=== PATIENT | female | born 1955 | race African-American/Black ===

== ENCOUNTER 2016-07-27 21:23 | Emergency (ER) | payer MEDICARE, MEDICAID ==
[~2016-07-27] VITALS: Ht 167.6 cm; Wt 88.1 kg
[~2016-07-27 21:23] MED LIST: ACET1TAB14 PO; AMLODIPINE; ASPIRIN PO; DIALYVITE PO; FLURAZEPAM; GABA-529 PO; JANUVIA PO; LANTUS SQ; METOPROLOL PO; PRANDIN; PRAVASTATIN PO; RENVELA PO; REPAGLINIDE PO; VALS160T2 PO
[2016-07-27] MEDS ORDERED: ACETAMINOPHEN WITH CODEINE 300/30MG TABLET PO ONE (23:15)
[2016-07-28] MEDS ORDERED: MORPHINE SULFATE 10 MG/ML CPJ IM ONE (00:15)
[2016-07-28] MEDS ORDERED: ONDANSETRON HCL 4MG/2ML VIAL IM ONE (00:15)
[2016-07-28 00:18] VITALS: BP 166/91
== END 2016-07-28 01:46 | disposition home or self-care (01) ==
LOC: ER 21:23
DX: S42.324A Nondisplaced transverse fracture of shaft of humerus, right arm, initial encounter for closed fracture (principal); R07.89 Other chest pain; I10 Essential (primary) hypertension; E11.9 Type 2 diabetes mellitus without complications; Z94.0 Kidney transplant status; W10.8XXA Fall (on) (from) other stairs and steps, initial encounter; Y93.89 Activity, other specified; Y92.238 Other place in hospital as the place of occurrence of the external cause
CPT/HCPCS: 29105; 71010; 73060; 73070; 96372; 99284; J2270; J2405; A4565

== ENCOUNTER 2018-10-01 15:06 | Inpatient (IN) | payer MEDICARE, MEDICAID ==
[~2018-10-01] VITALS: Ht 167.6 cm; Wt 76.7 kg
[~2018-10-01 15:06] MED LIST changes: -ACET1TAB14 PO; -AMLODIPINE; +AMLODIPINE PO; -ASPIRIN PO; -DIALYVITE PO; -FLURAZEPAM; -PRANDIN; -RENVELA PO; -REPAGLINIDE PO; -VALS160T2 PO
[2018-10-01] MEDS ORDERED: ACETAMINOPHEN 325MG TABLET PO STA (16:55)
[2018-10-01] MEDS ORDERED: MORPHINE SULFATE 4 MG/ML CPJ (NOT FOR IM USE) IV STA (16:55)
[2018-10-01] MEDS ORDERED: ONDANSETRON HCL 4MG/2ML INJ IV STA (16:55)
[2018-10-01] MEDS ORDERED: SODIUM CHLORIDE 0.9% 1,000 ML IV ONE (16:55)
[2018-10-01] MEDS ORDERED: SODIUM CHLORIDE 0.9% 1000ML BAG (SEPSIS BOLUS) IV ONE (17:00)
[2018-10-01] MEDS ORDERED: PIPERACILLIN/TAZ 3.375G PREMIX 50 ML IV ONE (17:00)
[2018-10-01 17:16] LABS: CHLORIDE 88 mEq/L (98-107); INR 0.9; PROTHROMBIN TIME 9.8 sec (9.6-11.0)
[2018-10-01 17:18] LABS: HEMOGLOBIN. 14.1 g/dL (12.0-16.0); MEAN CORPUSCULAR HEMOGLOBIN 27.1 pg (28.0-32.0); MEAN CORPUSCULAR VOLUME 82.9 fL (81.0-99.0); MEAN PLATELET VOLUME 11.4 fl (7.4-10.4); PLATELET 190 x1000/uL (130-400); RED BLOOD CELL COUNT 5.19 mill/uL (4.2-5.4); RED CELL DISTRIBUTION WIDTH 13.9 % (11.6-14.6)
[2018-10-01 18:12] LABS: PLATELET ESTIMATE NORMAL
[2018-10-01] MEDS ORDERED: INSULIN REGULAR (HUMULIN R) 300UNITS/3ML SUBCUT ONE (18:30)
[2018-10-01] MEDS ORDERED: INSULIN REGULAR (HUMULIN R) 300UNITS/3ML IV ONE (18:30)
[2018-10-01 18:37] LABS: CLARITY URINE CLEAR (CLEAR); COLOR URINE YELLOW (YELLOW); KETONES URINE 2+ (NEGATIVE); LEUKOCYTE ESTERASE URINE NEGATIVE (NEGATIVE); NITRITE URINE NEGATIVE (NEGATIVE); OCCULT BLOOD URINE NEGATIVE (NEGATIVE); PROTEIN URINE 1+ (NEGATIVE); SPECIFIC GRAVITY URINE 1.023 (1.005-1.030)
[2018-10-01] MEDS ORDERED: MORPHINE SULFATE 4 MG/ML CPJ (NOT FOR IM USE) IV ONE (20:00)
[2018-10-01] MEDS ORDERED: ONDANSETRON HCL 4MG/2ML INJ IV ONE (20:00)
[2018-10-01 22:00] VITALS: BP 129/70
[2018-10-01] MEDS ORDERED: ACETAMINOPHEN 325MG TABLET PO PRN (22:45)
[2018-10-01] MEDS ORDERED: HYDRALAZINE HCL 10MG TABLET PO PRN (22:45)
[2018-10-01] MEDS ORDERED: PIPERACILLIN/TAZOBACTAM 3.375GM/50ML PREMIX IV SCH (22:45)
[2018-10-01] MEDS ORDERED: DEXTROSE 50% WATER 50ML SYRINGE IV PRN (23:00)
[2018-10-01] MEDS ORDERED: ONDANSETRON HCL 4MG/2ML INJ IV PRN (23:00)
[2018-10-01] MEDS ORDERED: MORPHINE SULFATE 2 MG/ML CPJ (NOT FOR IM USE) IV PRN (23:44)
[2018-10-02] VITALS (12 sets, daily range): BP systolic 117–150; BP diastolic 45–80
[2018-10-02] MEDS: INSULIN LISPRO 100 UNITS/ML SUBCUT SCH ×5 (00:36→22:09)
[2018-10-02] MEDS: BLOOD SUGAR DIAGNOSTIC STRIP TEST SCH ×5 (00:36→21:47)
[2018-10-02] MEDS: PIPERACILLIN/TAZ 2.25G PREMIX 50 ML IV SCH ×3 (01:30→18:50)
[2018-10-02] MEDS: GABAPENTIN 100MG CAPSULE PO SCH ×2 (06:04→17:45)
[2018-10-02 06:15] LABS: HEMATOCRIT. 37.1 % (36.0-48.0); HEMOGLOBIN. 12.8 g/dL (12.0-16.0); MEAN CORPUSCULAR HEMOGLOBIN 27.7 pg (28.0-32.0); MEAN CORPUSCULAR VOLUME 80.4 fL (81.0-99.0); MEAN PLATELET VOLUME 10.8 fl (7.4-10.4); PLATELET 179 x1000/uL (130-400); RED BLOOD CELL COUNT 4.61 mill/uL (4.2-5.4); RED CELL DISTRIBUTION WIDTH 13.8 % (11.6-14.6)
[2018-10-02 06:30] LABS: CHLORIDE 100 mEq/L (98-107)
[2018-10-02] MEDS: MYCOPHENOLATE SODIUM 180 MG TABLET.DR PO SCH ×2 (08:20→17:45)
[2018-10-02] MEDS: PREDNISONE 5MG TABLET PO SCH (08:21)
[2018-10-02] MEDS ORDERED: TACROLIMUS 1MG CAPSULE PO SCH (09:00)
[2018-10-02] MEDS: HEPARIN 5000 UNITS/ML VIAL SUBCUT SCH ×2 (09:18→21:47)
[2018-10-02 14:23] LABS: PLATELET ESTIMATE NORMAL
[2018-10-02] MEDS ORDERED: VANCOMYCIN 1250MG in DEXTROSE 5% WATER 250ML IV SCH (17:00)
[2018-10-02] MEDS ORDERED: TACROLIMUS 1MG CAPSULE PO NR (21:30)
[2018-10-02] MEDS: FAMOTIDINE 20MG TABLET PO SCH (21:46)
[2018-10-02] MEDS ORDERED: INSULIN GLARGINE UD 100 UNITS/ML SYR SUBCUT SCH ×2 (22:00→22:30)
[2018-10-03] VITALS (13 sets, daily range): BP systolic 111–181; BP diastolic 27–97
[2018-10-03] MEDS: PIPERACILLIN/TAZ 2.25G PREMIX 50 ML IV SCH ×2 (02:02→10:14)
[2018-10-03] MEDS: HYDROCODONE/ACETAMINOPHEN 5/325MG TABLET PO PRN ×2 (03:59→15:57)
[2018-10-03] MEDS: VANCOMYCIN 750 MG PREMIX 150 ML IV SCH ×2 (04:01→16:12)
[2018-10-03] MEDS: GABAPENTIN 100MG CAPSULE PO SCH ×2 (05:24→17:50)
[2018-10-03] MEDS: BLOOD SUGAR DIAGNOSTIC STRIP TEST SCH ×4 (08:27→21:00)
[2018-10-03] MEDS ORDERED: INSULIN GLARGINE UD 100 UNITS/ML SYR SUBCUT SCH (10:00)
[2018-10-03] MEDS: INSULIN GLARGINE UD 100 UNITS/ML SYR SUBCUT SCH ×2 (10:12→22:42)
[2018-10-03] MEDS: INSULIN LISPRO 100 UNITS/ML SUBCUT SCH ×4 (10:13→21:17)
[2018-10-03] MEDS: MYCOPHENOLATE SODIUM 180 MG TABLET.DR PO SCH ×2 (10:14→16:12)
[2018-10-03] MEDS: PREDNISONE 5MG TABLET PO SCH (10:14)
[2018-10-03] MEDS: HEPARIN 5000 UNITS/ML VIAL SUBCUT SCH ×2 (10:15→21:05)
[2018-10-03] MEDS: TACROLIMUS 1MG CAPSULE PO SCH ×2 (11:00→16:12)
[2018-10-03] MEDS: SODIUM CHL 0.45% + KCL 20MEQ/L 1,000 ML IV SCH (13:38)
[2018-10-03] MEDS ORDERED: CEFTRIAXONE 2 G PREMIX 50 ML IV SCH (14:30)
[2018-10-03] MEDS: CEFTRIAXONE 2 G in DEXTROSE 5% WATER 50 ML IV SCH (17:49)
[2018-10-03] MEDS: NYSTATIN 100,000 UNITS/ML 5ML UDC SSW SCH ×2 (17:50→23:59)
[2018-10-03] MEDS: FAMOTIDINE 20MG TABLET PO SCH (21:04)
[2018-10-04] VITALS (12 sets, daily range): BP systolic 139–184; BP diastolic 61–106
[2018-10-04] MEDS: VANCOMYCIN 750 MG PREMIX 150 ML IV SCH (05:13)
[2018-10-04] MEDS: SODIUM CHL 0.45% + KCL 20MEQ/L 1,000 ML IV SCH ×2 (05:13→21:38)
[2018-10-04] MEDS: GABAPENTIN 100MG CAPSULE PO SCH ×2 (06:13→17:08)
[2018-10-04] MEDS: NYSTATIN 100,000 UNITS/ML 5ML UDC SSW SCH ×4 (06:13→23:33)
[2018-10-04 07:35] LABS: BASOPHILS % 0.7 % (0.0-2.0); EOSINOPHILS % 1.5 % (0.0-5.0); HEMATOCRIT. 35.3 % (36.0-48.0); HEMOGLOBIN. 12.1 g/dL (12.0-16.0); LYMPHOCYTES % 7.8 % (20.0-50.0); MEAN CORPUSCULAR HEMOGLOBIN 27.8 pg (28.0-32.0); MEAN CORPUSCULAR VOLUME 81.2 fL (81.0-99.0); MEAN PLATELET VOLUME 11.1 fl (7.4-10.4); MONOCYTES % 10.4 % (2.0-8.0); NEUTROPHILS % 79.6 % (40.0-76.0); PLATELET 185 x1000/uL (130-400); RED BLOOD CELL COUNT 4.35 mill/uL (4.2-5.4)
[2018-10-04] MEDS: BLOOD SUGAR DIAGNOSTIC STRIP TEST SCH ×4 (07:36→21:21)
[2018-10-04] MEDS: INSULIN LISPRO 100 UNITS/ML SUBCUT SCH ×4 (08:36→21:35)
[2018-10-04] MEDS: MYCOPHENOLATE SODIUM 180 MG TABLET.DR PO SCH ×2 (08:37→17:08)
[2018-10-04] MEDS: PREDNISONE 5MG TABLET PO SCH (08:37)
[2018-10-04] MEDS: HEPARIN 5000 UNITS/ML VIAL SUBCUT SCH ×2 (08:38→21:19)
[2018-10-04 08:45] LABS: CHLORIDE 97 mEq/L (98-107)
[2018-10-04 09:18] LABS: PHOSPHORUS 2.5 mg/dL (2.5-4.9)
[2018-10-04] MEDS: INSULIN GLARGINE UD 100 UNITS/ML SYR SUBCUT SCH ×2 (10:31→22:18)
[2018-10-04] MEDS: TACROLIMUS 1MG CAPSULE PO SCH ×2 (10:31→17:08)
[2018-10-04] MEDS ORDERED: PROPOFOL 200MG/20ML VIAL IV ONE ×2 (10:34→11:31)
[2018-10-04] MEDS ORDERED: MIDAZOLAM HCL 2 MG/2 ML VIAL ONE (10:35)
[2018-10-04] MEDS ORDERED: FENTANYL CITRATE/PF 50MCG/ML 2ML VIAL ONE (10:35)
[2018-10-04] MEDS ORDERED: LIDOCAINE HCL/PF 1% 10 MG/ML 5ML VIAL ONE (10:35)
[2018-10-04] MEDS: AMLODIPINE 2.5MG TABLET PO SCH (10:43)
[2018-10-04] MEDS: METOPROLOL TARTRATE 25MG TABLET PO SCH ×2 (10:44→21:20)
[2018-10-04] MEDS ORDERED: LIDOCAINE HCL 1% 20ML VIAL (Pyxis) INJ ONE (10:46)
[2018-10-04] MEDS ORDERED: BACITRACIN 50,000 UNITS/VIAL ONE (10:47)
[2018-10-04] MEDS ORDERED: BUPIVACAINE HCL/PF 0.5% (5MG/ML) 10ML ONE (10:47)
[2018-10-04] MEDS ORDERED: NORMAL SALINE 0.9% 10 ML SYR ONE (10:47)
[2018-10-04] MEDS: CEFTRIAXONE 2 G in DEXTROSE 5% WATER 50 ML IV SCH (17:07)
[2018-10-04] MEDS: HYDROCODONE/ACETAMINOPHEN 5/325MG TABLET PO PRN (20:24)
[2018-10-04] MEDS: ATORVASTATIN CALCIUM 10MG TABLET PO SCH (21:19)
[2018-10-04] MEDS: FAMOTIDINE 20MG TABLET PO SCH (21:20)
[2018-10-05] VITALS (12 sets, daily range): BP systolic 137–177; BP diastolic 53–79
[2018-10-05] MEDS: NYSTATIN 100,000 UNITS/ML 5ML UDC SSW SCH ×3 (05:45→18:12)
[2018-10-05] MEDS: GABAPENTIN 100MG CAPSULE PO SCH ×2 (05:46→18:12)
[2018-10-05] MEDS ORDERED: VANCOMYCIN 750 MG PREMIX 150 ML IV SCH (06:00)
[2018-10-05 07:34] LABS: CHLORIDE 102 mEq/L (98-107); HEMATOCRIT. 35.7 % (36.0-48.0); HEMOGLOBIN. 11.7 g/dL (12.0-16.0); MEAN CORPUSCULAR VOLUME 82.5 fL (81.0-99.0); PLATELET 187 x1000/uL (130-400); RED BLOOD CELL COUNT 4.32 mill/uL (4.2-5.4)
[2018-10-05] MEDS: BLOOD SUGAR DIAGNOSTIC STRIP TEST SCH ×4 (08:26→21:00)
[2018-10-05] MEDS: METOPROLOL TARTRATE 25MG TABLET PO SCH ×2 (08:36→21:35)
[2018-10-05] MEDS: MYCOPHENOLATE SODIUM 180 MG TABLET.DR PO SCH ×2 (08:37→18:12)
[2018-10-05] MEDS: DOCUSATE SODIUM 250MG CAPSULE PO SCH (08:37)
[2018-10-05] MEDS: PREDNISONE 5MG TABLET PO SCH (08:37)
[2018-10-05] MEDS: TACROLIMUS 1MG CAPSULE PO SCH ×2 (08:37→18:12)
[2018-10-05] MEDS: AMLODIPINE 2.5MG TABLET PO SCH (08:37)
[2018-10-05] MEDS: INSULIN LISPRO 100 UNITS/ML SUBCUT SCH ×4 (08:39→21:55)
[2018-10-05] MEDS: HEPARIN 5000 UNITS/ML VIAL SUBCUT SCH ×2 (09:20→21:46)
[2018-10-05] MEDS: INSULIN GLARGINE UD 100 UNITS/ML SYR SUBCUT SCH ×2 (09:26→21:55)
[2018-10-05 09:51] LABS: PLATELET ESTIMATE NORMAL
[2018-10-05] MEDS: HYDRALAZINE HCL 25MG TABLET PO PRN (13:24)
[2018-10-05] MEDS: SODIUM CHL 0.45% + KCL 20MEQ/L 1,000 ML IV SCH (15:46)
[2018-10-05] MEDS: CEFTRIAXONE 2 G in DEXTROSE 5% WATER 50 ML IV SCH (18:13)
[2018-10-05] MEDS ORDERED: LACTULOSE 20G/30ML UDC PO PRN (21:00)
[2018-10-05] MEDS: FAMOTIDINE 20MG TABLET PO SCH (21:34)
[2018-10-05] MEDS: ATORVASTATIN CALCIUM 10MG TABLET PO SCH (21:46)
[2018-10-05] MEDS: HYDROCODONE/ACETAMINOPHEN 5/325MG TABLET PO PRN (22:08)
[2018-10-06] VITALS (12 sets, daily range): BP systolic 109–187; BP diastolic 52–85
[2018-10-06] MEDS: GABAPENTIN 100MG CAPSULE PO SCH ×2 (04:46→17:27)
[2018-10-06] MEDS: NYSTATIN 100,000 UNITS/ML 5ML UDC SSW SCH ×3 (04:47→17:27)
[2018-10-06 07:13] LABS: BASOPHILS % 0.6 % (0.0-2.0); HEMATOCRIT. 36.2 % (36.0-48.0); HEMOGLOBIN. 11.8 g/dL (12.0-16.0); LYMPHOCYTES % 9.3 % (20.0-50.0); MEAN CORPUSCULAR HEMOGLOBIN 26.8 pg (28.0-32.0); MEAN CORPUSCULAR VOLUME 82.4 fL (81.0-99.0); MEAN PLATELET VOLUME 10.4 fl (7.4-10.4); MONOCYTES % 11.4 % (2.0-8.0); NEUTROPHILS % 76.7 % (40.0-76.0); PLATELET 211 x1000/uL (130-400); RED BLOOD CELL COUNT 4.39 mill/uL (4.2-5.4); RED CELL DISTRIBUTION WIDTH 14.1 % (11.6-14.6)
[2018-10-06] MEDS: INSULIN LISPRO 100 UNITS/ML SUBCUT SCH ×4 (08:00→22:01)
[2018-10-06] MEDS: BLOOD SUGAR DIAGNOSTIC STRIP TEST SCH ×4 (08:02→21:00)
[2018-10-06] MEDS: SODIUM CHL 0.45% + KCL 20MEQ/L 1,000 ML IV SCH (08:34)
[2018-10-06] MEDS: HEPARIN 5000 UNITS/ML VIAL SUBCUT SCH ×2 (08:34→21:52)
[2018-10-06] MEDS: AMLODIPINE 2.5MG TABLET PO SCH (08:35)
[2018-10-06] MEDS: MYCOPHENOLATE SODIUM 180 MG TABLET.DR PO SCH ×2 (08:35→17:28)
[2018-10-06] MEDS: PREDNISONE 5MG TABLET PO SCH (08:35)
[2018-10-06] MEDS: DOCUSATE SODIUM 250MG CAPSULE PO SCH (08:35)
[2018-10-06] MEDS: TACROLIMUS 1MG CAPSULE PO SCH ×2 (08:35→17:28)
[2018-10-06] MEDS: LINAGLIPTIN 5MG TABLET PO SCH (08:35)
[2018-10-06] MEDS: METOPROLOL TARTRATE 25MG TABLET PO SCH ×2 (08:36→21:46)
[2018-10-06] MEDS: HYDRALAZINE HCL 25MG TABLET PO PRN (11:32)
[2018-10-06] MEDS: INSULIN GLARGINE UD 100 UNITS/ML SYR SUBCUT SCH ×2 (11:36→22:01)
[2018-10-06] MEDS: CEFTRIAXONE 2 G in DEXTROSE 5% WATER 50 ML IV SCH (17:28)
[2018-10-06] MEDS: AMLODIPINE 5MG TABLET PO SCH (21:46)
[2018-10-06] MEDS: FAMOTIDINE 20MG TABLET PO SCH (21:46)
[2018-10-06] MEDS: ATORVASTATIN CALCIUM 10MG TABLET PO SCH (22:03)
[2018-10-07] VITALS (10 sets, daily range): BP systolic 144–175; BP diastolic 67–77
[2018-10-07] MEDS: NYSTATIN 100,000 UNITS/ML 5ML UDC SSW SCH ×4 (01:16→17:45)
[2018-10-07] MEDS: SODIUM CHL 0.45% + KCL 20MEQ/L 1,000 ML IV SCH (01:17)
[2018-10-07] MEDS: HYDRALAZINE HCL 25MG TABLET PO PRN (02:28)
[2018-10-07] MEDS: GABAPENTIN 100MG CAPSULE PO SCH ×2 (06:51→17:42)
[2018-10-07 06:55] LABS: BASOPHILS % 0.6 % (0.0-2.0); HEMATOCRIT. 34.9 % (36.0-48.0); HEMOGLOBIN. 11.6 g/dL (12.0-16.0); LYMPHOCYTES % 8.1 % (20.0-50.0); MEAN CORPUSCULAR HEMOGLOBIN 27.5 pg (28.0-32.0); MEAN CORPUSCULAR VOLUME 82.4 fL (81.0-99.0); MEAN PLATELET VOLUME 10.3 fl (7.4-10.4); MONOCYTES % 12.8 % (2.0-8.0); NEUTROPHILS % 76.5 % (40.0-76.0); PLATELET 218 x1000/uL (130-400); RED BLOOD CELL COUNT 4.23 mill/uL (4.2-5.4)
[2018-10-07 07:17] LABS: CHLORIDE 104 mEq/L (98-107)
[2018-10-07] MEDS: BLOOD SUGAR DIAGNOSTIC STRIP TEST SCH ×4 (07:30→21:00)
[2018-10-07] MEDS: HEPARIN 5000 UNITS/ML VIAL SUBCUT SCH ×2 (09:18→21:52)
[2018-10-07] MEDS: TACROLIMUS 1MG CAPSULE PO SCH ×2 (09:21→17:44)
[2018-10-07] MEDS: PREDNISONE 5MG TABLET PO SCH (09:22)
[2018-10-07] MEDS: AMLODIPINE 5MG TABLET PO SCH (09:24)
[2018-10-07] MEDS: MYCOPHENOLATE SODIUM 180 MG TABLET.DR PO SCH ×2 (09:24→17:44)
[2018-10-07] MEDS: METOPROLOL TARTRATE 25MG TABLET PO SCH ×2 (09:25→21:52)
[2018-10-07] MEDS: DOCUSATE SODIUM 250MG CAPSULE PO SCH (09:26)
[2018-10-07] MEDS: LINAGLIPTIN 5MG TABLET PO SCH (09:26)
[2018-10-07] MEDS: INSULIN LISPRO 100 UNITS/ML SUBCUT SCH ×4 (09:35→22:48)
[2018-10-07] MEDS: INSULIN GLARGINE UD 100 UNITS/ML SYR SUBCUT SCH ×2 (10:49→22:51)
[2018-10-07] MEDS: CEFTRIAXONE 2 G in DEXTROSE 5% WATER 50 ML IV SCH (17:45)
[2018-10-07] MEDS ORDERED: AMLODIPINE 5MG TABLET PO SCH (21:00)
[2018-10-07] MEDS: ATORVASTATIN CALCIUM 10MG TABLET PO SCH (21:52)
[2018-10-07] MEDS: FAMOTIDINE 20MG TABLET PO SCH (21:52)
[2018-10-08] VITALS (12 sets, daily range): BP systolic 138–179; BP diastolic 52–85
[2018-10-08] MEDS: GABAPENTIN 100MG CAPSULE PO SCH ×2 (07:14→18:20)
[2018-10-08] MEDS: BLOOD SUGAR DIAGNOSTIC STRIP TEST SCH ×4 (07:55→21:58)
[2018-10-08] MEDS: INSULIN LISPRO 100 UNITS/ML SUBCUT SCH ×5 (07:55→22:13)
[2018-10-08] MEDS: METOPROLOL TARTRATE 25MG TABLET PO SCH ×2 (09:06→22:12)
[2018-10-08] MEDS: DOCUSATE SODIUM 250MG CAPSULE PO SCH (09:07)
[2018-10-08] MEDS: AMLODIPINE 10MG TABLET PO SCH (09:07)
[2018-10-08] MEDS: LINAGLIPTIN 5MG TABLET PO SCH (09:07)
[2018-10-08] MEDS: PREDNISONE 5MG TABLET PO SCH (09:08)
[2018-10-08] MEDS: HEPARIN 5000 UNITS/ML VIAL SUBCUT SCH ×2 (09:08→22:10)
[2018-10-08] MEDS: MYCOPHENOLATE SODIUM 180 MG TABLET.DR PO SCH ×2 (09:16→16:26)
[2018-10-08] MEDS: INSULIN GLARGINE UD 100 UNITS/ML SYR SUBCUT SCH ×2 (10:30→21:57)
[2018-10-08] MEDS: TACROLIMUS 0.5 MG CAPSULE PO SCH ×2 (10:39→16:26)
[2018-10-08] MEDS: CEFTRIAXONE 2 G in DEXTROSE 5% WATER 50 ML IV SCH (16:25)
[2018-10-08] MEDS: NYSTATIN 100,000 UNITS/ML 5ML UDC SSW SCH ×2 (19:10→19:11)
[2018-10-08] MEDS: ATORVASTATIN CALCIUM 10MG TABLET PO SCH (22:07)
[2018-10-08] MEDS: FAMOTIDINE 20MG TABLET PO SCH (22:08)
[2018-10-09] VITALS (11 sets, daily range): BP systolic 142–158; BP diastolic 58–93
[2018-10-09] MEDS: NYSTATIN 100,000 UNITS/ML 5ML UDC SSW SCH ×4 (01:38→23:27)
[2018-10-09] MEDS: GABAPENTIN 100MG CAPSULE PO SCH ×2 (06:07→17:08)
[2018-10-09] MEDS: INSULIN LISPRO 100 UNITS/ML SUBCUT SCH ×4 (08:00→22:08)
[2018-10-09] MEDS: BLOOD SUGAR DIAGNOSTIC STRIP TEST SCH ×3 (08:14→21:00)
[2018-10-09] MEDS: MYCOPHENOLATE SODIUM 180 MG TABLET.DR PO SCH ×2 (08:55→17:07)
[2018-10-09] MEDS: TACROLIMUS 0.5 MG CAPSULE PO SCH ×2 (08:55→17:08)
[2018-10-09] MEDS: DOCUSATE SODIUM 250MG CAPSULE PO SCH (08:56)
[2018-10-09] MEDS: METOPROLOL TARTRATE 25MG TABLET PO SCH ×2 (08:56→21:55)
[2018-10-09] MEDS: LINAGLIPTIN 5MG TABLET PO SCH (08:56)
[2018-10-09] MEDS: AMLODIPINE 10MG TABLET PO SCH (08:56)
[2018-10-09] MEDS: PREDNISONE 5MG TABLET PO SCH (08:57)
[2018-10-09] MEDS: HEPARIN 5000 UNITS/ML VIAL SUBCUT SCH ×2 (08:58→21:49)
[2018-10-09] MEDS: INSULIN GLARGINE UD 100 UNITS/ML SYR SUBCUT SCH ×2 (09:00→22:07)
[2018-10-09] MEDS: CEFTRIAXONE 2 G in DEXTROSE 5% WATER 50 ML IV SCH (17:07)
[2018-10-09] MEDS: FAMOTIDINE 20MG TABLET PO SCH (21:49)
[2018-10-09] MEDS: ATORVASTATIN CALCIUM 10MG TABLET PO SCH (22:01)
[2018-10-09] MEDS: HYDRALAZINE HCL 25MG TABLET PO PRN (22:55)
[2018-10-10] VITALS (10 sets, daily range): BP systolic 126–169; BP diastolic 66–76
[2018-10-10] MEDS: NYSTATIN 100,000 UNITS/ML 5ML UDC SSW SCH ×3 (06:01→17:25)
[2018-10-10] MEDS: GABAPENTIN 100MG CAPSULE PO SCH ×2 (06:02→17:25)
[2018-10-10] MEDS: INSULIN LISPRO 100 UNITS/ML SUBCUT SCH ×3 (08:00→17:25)
[2018-10-10] MEDS: BLOOD SUGAR DIAGNOSTIC STRIP TEST SCH ×3 (08:22→17:26)
[2018-10-10] MEDS: HEPARIN 5000 UNITS/ML VIAL SUBCUT SCH (08:23)
[2018-10-10] MEDS: MYCOPHENOLATE SODIUM 180 MG TABLET.DR PO SCH ×2 (08:23→16:40)
[2018-10-10] MEDS: TACROLIMUS 0.5 MG CAPSULE PO SCH ×2 (08:23→16:41)
[2018-10-10] MEDS: DOCUSATE SODIUM 250MG CAPSULE PO SCH (08:24)
[2018-10-10] MEDS: PREDNISONE 5MG TABLET PO SCH (08:24)
[2018-10-10] MEDS: LINAGLIPTIN 5MG TABLET PO SCH (08:24)
[2018-10-10] MEDS: AMLODIPINE 10MG TABLET PO SCH (08:24)
[2018-10-10] MEDS: METOPROLOL TARTRATE 25MG TABLET PO SCH (08:25)
[2018-10-10] MEDS: INSULIN GLARGINE UD 100 UNITS/ML SYR SUBCUT SCH (10:10)
[2018-10-10] MEDS: CEFTRIAXONE 2 G in DEXTROSE 5% WATER 50 ML IV SCH (16:40)
[2018-10-10] MEDS: HYDRALAZINE HCL 25MG TABLET PO PRN (17:31)
== END 2018-10-10 18:30 | disposition home health service (06) | DRG 853 ==
LOC: ER 15:06 → EDBEDREQ 17:00 → ENRESERV 20:08 → 5EST 23:27
PROVIDERS: ADMIT Internal Medicine Nephrology; ATTEND Internal Medicine Nephrology
PROC: 0Y6T0Z0 Detachment at Right 3rd Toe, Complete, Open Approach (ICD-10-PCS; principal; 2018-10-04)
PROC: B54MZZA Ultrasonography of Right Upper Extremity Veins, Guidance (ICD-10-PCS; 2018-10-04)
PROC: 05HY33Z Insertion of Infusion Device into Upper Vein, Percutaneous Approach (ICD-10-PCS; 2018-10-04)
DX: A40.0 Sepsis due to streptococcus, group A (principal); N18.6 End stage renal disease; E11.52 Type 2 diabetes mellitus with diabetic peripheral angiopathy with gangrene; E46 Unspecified protein-calorie malnutrition; I12.0 Hypertensive chronic kidney disease with stage 5 chronic kidney disease or end stage renal disease; Z94.0 Kidney transplant status; E11.65 Type 2 diabetes mellitus with hyperglycemia; E11.22 Type 2 diabetes mellitus with diabetic chronic kidney disease; L98.499 Non-pressure chronic ulcer of skin of other sites with unspecified severity; E11.319 Type 2 diabetes mellitus with unspecified diabetic retinopathy without macular edema; E11.42 Type 2 diabetes mellitus with diabetic polyneuropathy; E11.621 Type 2 diabetes mellitus with foot ulcer; E78.5 Hyperlipidemia, unspecified; J44.9 Chronic obstructive pulmonary disease, unspecified; L08.0 Pyoderma; M85.80 Other specified disorders of bone density and structure, unspecified site; R74.0 Nonspecific elevation of levels of transaminase and lactic acid dehydrogenase [LDH]; M46.46 Discitis, unspecified, lumbar region; D64.9 Anemia, unspecified; L97.519 Non-pressure chronic ulcer of other part of right foot with unspecified severity; L98.429 Non-pressure chronic ulcer of back with unspecified severity; Z79.4 Long term (current) use of insulin; Z79.899 Other long term (current) drug therapy; Z87.891 Personal history of nicotine dependence; Z89.421 Acquired absence of other right toe(s); Z89.512 Acquired absence of left leg below knee; Z98.41 Cataract extraction status, right eye; Z98.42 Cataract extraction status, left eye; Z99.2 Dependence on renal dialysis; Z68.27 Body mass index [BMI] 27.0-27.9, adult
CPT/HCPCS: 36415; 71045; 73630; 76937; 80048; 80197; 80202; 82010; 82962; 83036; 83605; 83735; 83880; 84100; 84145; 84484; 85651; 86140; 86850; 86900; 87070; 87075; 87077; 87106; 87186; 88305; 88311; 93005; 93306; 93922; 96374; 97110; 97116; 97162; 97165; 97530; 99285; C1725; J0696; J1644; J1815; J2250; J2270; J2405; J2543; J2704; J3010; J3370; J3480; J3490; J7030; J7040; J7050; J7060; J7507; J7512; J7517

== ENCOUNTER → 2019-03-27 | Outpatient (CLI) | payer MEDICARE, MEDICAID ==
[~2019-03-27] MED LIST changes: -AMLODIPINE PO; -METOPROLOL PO
== END | disposition home or self-care (01) ==
LOC: US 09:57
PROVIDERS: ATTEND Internal Medicine Nephrology
DX: K80.50 Calculus of bile duct without cholangitis or cholecystitis without obstruction (principal); K82.8 Other specified diseases of gallbladder; N85.8 Other specified noninflammatory disorders of uterus
CPT/HCPCS: 76700; 76856